=== PATIENT | female | born 1950 | race Caucasian/White ===

== ENCOUNTER 2017-02-21 09:56 | Outpatient (CLI) | payer BC ==
--- NOTE | 2017-02-21 12:28 | DIAGNOSTIC IMAGING REPORT ---
PROCEDURE: MG BILATERAL SCREENING W/CAD INDICATION: Screening. Family history breast carcinoma (paternal grandmother). TECHNIQUE: Bilateral CC and MLO digital views. COMPARISON: Compared to 02/03/2016, 12/06/2014, and 11/30/2013. FINDINGS: Computer-aided detection applied. Mildly dense. No change. IMPRESSION: 1. Negative mammogram RESULT CODE: 1- Negative. A. A negative report should not delay biopsy if a dominant or clinically suspicious mass is present. 10-15% of cancers are not identified by x-ray. B. A negative report may reinforce clinical impression. C. Adenosis and dense breasts may obscure an underlying neoplasm. D. False positive reports average 6-10%. E.. A yearly screening mammogram is recommended. A reminder letter will be scheduled.
== END 2017-02-21 23:00 | disposition home or self-care (01) ==
LOC: MAM SRH 09:56
DX: Z12.31 Encounter for screening mammogram for malignant neoplasm of breast (principal)